=== PATIENT | female | born 1965 | race Two or more races ===

== ENCOUNTER → 2018-01-06 | Day surgery (SDC) | payer OTHER ==
--- NOTE | 2018-01-06 14:07 | OP ---
DATE OF OPERATION: 01/06/2018 PREOPERATIVE DIAGNOSIS: Abnormal right mammography. POSTOPERATIVE DIAGNOSIS: Abnormal right mammography. . PROCEDURE: Right stereotactic needle biopsy with clip. SURGEON: Radha Levine MD ANESTHESIA: Local. COMPLICATIONS: None. This was a sterile procedure. INDICATIONS FOR PROCEDURE: Patient presented for routine screening mammography that noted cluster of microcalcifications in the upper right breast. My recommendation was a needle biopsy. The procedure was discussed, including the need for a clip. PROCEDURE IN DETAIL: Patient was brought to [facility] in [place], laid prone on the [place] table. Using the cranial approach, the calcifications in the upper right breast were identified. A stereo pair was obtained. The target was chosen. There was a positive stroke margin. Using Betadine and 1% lidocaine, a 10-gauge Suros device was used to take several cores from this area. Cores showed calcification within them. These were handled in the usual calcification protocol. Hemostasis was assured with direct pressure. The incision was closed with Steri-Strips. She tolerated the procedure well and [facility] good [facility]. RADHA LEVINE M.D. [id number]
--- NOTE | 2018-01-07 14:52 | PATH ---
Surgical Pathology Report Patient Name: JOCELYN PATRICK [facility]. Rec. #: [id number] /Age/Gender: 1965 (Age: 52) / F Account: [id number] Location: [facility] Taken: 01/06/2018 Received: 01/06/2018 Reported: 01/07/2018 Physicians: Radha Dennison M.D. Specimen(s) Received A: RIGHT BREAST SPECIMEN WITH CALCIFICATIONS B: RIGHT BREAST SPECIMEN WITHOUT CALCIFICATIONS Clinical History Mammographic findings: Microcalcification, suspicious Final Diagnosis A. BREAST, RIGHT, WITH CALCIFICATIONS, STEREOTACTIC BIOPSY: ATYPICAL DUCTAL HYPERPLASIA (ADH) ARISING IN A BACKGROUND OF COLUMNAR CELL CHANGE WITH ASSOCIATED CALCIFICATIONS. B. 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 Electronically Signed Clara Poole M.D. Gross Description A. Received in formalin labeled "right breast with calcifications," are 4 bay-yellow, cylindrical portions of fibroadipose tissue ranging from 0.7-1.7 cm in length and averaging 0.3 cm in diameter. The specimens are submitted in toto in one cassette. B. Received in formalin labeled "right breast without calcifications," are 9 bay-yellow, cylindrical portions of fibroadipose tissue ranging from 0.4-2.9 cm in length and averaging 0.3 cm in diameter. The specimens are submitted in toto in 2 cassettes. Time to formalin fixation: 5 minutes Total formalin fixation time: Approximately 7 hours. 01/06/201801/06/2018
== END | disposition home or self-care (01) ==
LOC: FMAMMOTONE 09:50
PROVIDERS: ATTEND Surgery
PROC: 0HBT3ZX Excision of Right Breast, Percutaneous Approach, Diagnostic (ICD-10-PCS; principal; 2018-01-06)
DX: N60.81 Other benign mammary dysplasias of right breast (principal); N60.91 Unspecified benign mammary dysplasia of right breast; N64.89 Other specified disorders of breast; R92.8 Other abnormal and inconclusive findings on diagnostic imaging of breast
CPT/HCPCS: 19081; 88305-TC

== ENCOUNTER 2018-02-26 07:02 | Day surgery (SDC) | payer OTHER ==
[2018-02-24 16:20] VITALS: BMI 24.1
[2018-02-26] MEDS ORDERED: LIDOCAINE HCL 1%, 10 MG/ML (20ML VIAL) ONE (09:05)
[2018-02-26] MEDS ORDERED: LIDOCAINE HCL/PF 2% SDV 5ML VIAL ONE (09:25)
[2018-02-26] MEDS ORDERED: SODIUM CHLORIDE 0.9% P/F 10 ML VIAL IJ ONE (09:25)
[2018-02-26] MEDS ORDERED: ceFAZolin SODIUM 1 GM VIAL ONE (09:25)
[2018-02-26] MEDS ORDERED: MIDAZOLAM HCL 2 MG/2 ML SINGLE DOSE VIAL ONE (09:25)
[2018-02-26] MEDS ORDERED: DEXAMETHASONE SOD PHOSPHATE 4 MG/1 ML VIAL ONE (09:25)
--- NOTE | 2018-02-26 09:26 | HP ---
History & Physical Update - History History: No Change - Physical Physical: No Change - Assessment Assessment: No Change - Plan Plan: No Change
[2018-02-26] MEDS ORDERED: ceFAZolin SODIUM 1 GM VIAL IVPB ONE (10:11)
[2018-02-26] MEDS ORDERED: LIDOCAINE HCL 1%, 10 MG/ML (50 mL VIAL) IJ ONE ×2 (10:14)
[2018-02-26] MEDS ORDERED: PROPOFOL 20 ML ONE (10:21)
--- NOTE | 2018-02-26 11:15 | OP ---
DATE OF OPERATION: 02/26/2018 PREOPERATIVE DIAGNOSIS: Right breast atypia. POSTOPERATIVE DIAGNOSIS: Right breast atypia. PROCEDURE: Right breast wide-localized lumpectomy. SURGEON: Radha Dennison MD ANESTHESIA: Local, IV sedation. ESTIMATED BLOOD LOSS: Minimal. COMPLICATIONS: None. This is a sterile procedure. INDICATIONS FOR PROCEDURE: The patient had a screening mammogram that noted calcifications in the upper right breast and needle biopsy done showed atypical duct . My recommendation was an excision to make sure there is no further upgrade in the lesion. The procedure was discussed with all the questions answered. PROCEDURE IN DETAIL: The patient was brought to [facility] in [place] and taken to Breast Imaging where a wire was used to localize the clip in the upper right breast. She was then brought into the operating room, and after IV sedation and IV antibiotics, the right breast was prepped and draped in the usual sterile fashion. The upper right breast was anesthetized with 1% lidocaine without epinephrine. A curvilinear incision was made at the entry point of the wire and the wire was used as a guide to get down to the area of interest. This was excised en bloc and tagged with a long stitch lateral, short stitch superior, and sent for a specimen radiograph. The specimen radiograph showed no clip which was likely more anterior to where there were residual calcifications. The residual calcifications were in the specimen. This was then sent to Pathology for permanent section. We will await the pathology from this prior to deciding any further treatment. Hemostasis was assured with electrocautery. with interrupted 2-0 Vicryl, skin approximated with interrupted 3-0 Vicryl and running 4-0 Prolene. A sterile dressing with Tegaderm and 4 x 4's was applied. She tolerated the procedure well and was taken to recovery in good condition. Kaleigh [id number]
[2018-02-26] MEDS ORDERED: ONDANSETRON 4 MG/2 ML VIAL IVPUSH PRN (11:26)
[2018-02-26] MEDS ORDERED: oxyCODONE HCL 5 MG TABLET PO PRN (11:26)
[2018-02-26] MEDS ORDERED: LACTATED RINGERS SOLUTION 1,000 ML IV SCH (11:30)
[2018-02-26 13:04] VITALS: BP 118/63; PULSE 66; TEMP 98.6
--- NOTE | 2018-03-02 14:22 | PATH ---
Surgical Pathology Report Patient Name: JOCELYN PATRICK [facility]. Rec. #: [id number] /Age/Gender: 1965 (Age: 52) / F Account: [id number] Location: [facility] Taken: 02/26/2018 Received: 02/26/2018 Reported: 03/02/2018 Physicians: Radha Dennison M.D. Specimen(s) Received RIGHT BREAST MASS Clinical History None given Final Diagnosis BREAST, RIGHT, LUMPECTOMY: RADIAL SCLEROSING LESION WITH ASSOCIATED PROLIFERATIVE FIBROCYSTIC CHANGES INCLUDING STROMAL FIBROSIS, APOCRINE METAPLASIA, SCLEROSING ADENOSIS, USUAL DUCTAL HYPERPLASIA, COLUMNAR CELL CHANGES, AND MICROCALCIFICATIONS. SMALL INTRADUCTAL PAPILLOMA AND FIBROADENOMA. CHANGES OF PRIOR BIOPSY PRESENT. Electronically Signed Meryl Farfan M.D. Gross Description Received fresh AccuGrid, labeled "right breast lumpectomy," is a 3 x 3 x 2 cm. bay-yellow, irregular, portion of fibroadipose tissue with a needle localization wire present. There is a needle localization wire and biopsy clip identified on the radiograph. There is a short suture marking the superior aspect and a long suture marking the lateral aspect, per the surgeon. There is no skin or nipple present. The specimen is inked as follows: superior and lateral blue; inferior green; medial yellow; anterior red; deep black. The specimen is serially sectioned from superior to inferior. Sectioning reveals abundant dense, white, focally firm fibrous tissue. There is a hemorrhagic focus, consistent with a previous biopsy site. No definitive mass is identified. The specimen is entirely and sequentially submitted from superior to inferior in 11 cassettes with the superior margin in cassette 1, the inferior margin in cassette 11 and the previous biopsy site in cassette 5 (one bisected section each in cassettes 5-6, 7-8 and 9-10). Total formalin fixation time: Approximately 6 hours. 02/26/201802/26/2018
== END 2018-02-26 13:05 | disposition home or self-care (01) ==
LOC: JASU-SURG 07:02
PROVIDERS: ATTEND Surgery
PROC: 0HBU0ZZ Excision of Left Breast, Open Approach (ICD-10-PCS; principal; 2018-02-26 10:00)
DX: D24.1 Benign neoplasm of right breast (principal); N60.31 Fibrosclerosis of right breast; N60.21 Fibroadenosis of right breast; N60.81 Other benign mammary dysplasias of right breast; N64.89 Other specified disorders of breast
CPT/HCPCS: 19281; 84703; 88307-TC